=== PATIENT | female | born 1940 | race Caucasian/White ===

== ENCOUNTER 2024-02-06 19:35 | Inpatient (IN) | payer MEDICARE, OTHER ==
[~2024-02-06] VITALS: Ht 152.4 cm; Wt 81.6 kg
[2024-02-06 20:38] LABS: BASOPHILS # (AUTO) 0.1 K/uL (0.0-0.2); BASOPHILS % (AUTO) 0.6 % (0.0-2.0); EOSINOPHILS # (AUTO) 0.2 K/uL (0.0-0.7); HEMATOCRIT 35 % (33-45); LYMPHOCYTES # (AUTO) 1.5 K/uL (0.8-4.8); MEAN CORPUSCULAR HEMOGLOBIN 29 PG (26.0-33.0); MEAN CORPUSCULAR HGB CONC 31 g/dl (31.0-36.0); MEAN CORPUSCULAR VOLUME 93 fL (82-100); MONOCYTES # (AUTO) 0.9 K/uL (0.1-1.30); MONOCYTES % (AUTO) 8.4 % (2.0-12.0); NEUTROPHILS # (AUTO) 8.2 K/uL (1.8-8.9); PLATELET COUNT (AUTO) 159 K/uL (150-450); RED BLOOD CELL COUNT(AUTO) 3.79 MIL/uL (4.0-5.2); RED CELL DISTRIBUTION WIDTH 15.1 % (11.5-15.0)
[2024-02-06 20:51] LABS: INR 1.12 (0.91-1.10); PARTIAL THROMBOPLASTIN TIME 21.6 SEC (24.3-34.3); PROTHROMBIN TIME 11.4 SECS (9.2-11.1)
[2024-02-06 21:23] LABS: CALCIUM, SERUM 8.6 mg/dL (8.5-10.1); CARBON DIOXIDE 19 mmol/L (21-32); CHLORIDE 109 mmol/L (98-107); CREATININE 1.5 mg/dL (0.6-1.3); GLUCOSE 177 mg/dL (74-106); POTASSIUM 4.9 mmol/L (3.5-5.1); SODIUM SERUM 141 mmol/L (136-145); UREA NITROGEN, BLOOD 27 mg/dL (7-18)
[2024-02-06 21:28] LABS: LACTIC ACID 1.8 mmol/L (0.4-2.0)
[2024-02-06 21:31] LABS: ALANINE AMINOTRANSFERASE 15 U/L (12-78); ALBUMIN 3.3 g/dL (3.4-5.0); ALKALINE PHOSPHATASE 87 U/L (46-116); ASPARTATE AMINOTRANSFERASE 11 U/L (15-37); BILIRUBIN,DIRECT 0.1 mg/dL (0.0-0.2); BILIRUBIN,TOTAL 0.3 mg/dL (0.2-1.0); TOTAL PROTEIN, SERUM 6.6 g/dL (6.4-8.2)
[2024-02-06] MEDS ORDERED: MAG HYDROX/AL HYDROX/SIMETH 30 ML UDC PO PRN (22:00)
[2024-02-06] MEDS ORDERED: ONDANSETRON HCL/PF 4 MG/2 ML VIAL IVP PRN (22:00)
[2024-02-06] MEDS ORDERED: Z GUARD REMEDY 4 OZ OINT TP PRN (22:00)
[2024-02-06] MEDS ORDERED: MAGNESIUM HYDROXIDE 30 ML UDC PO PRN (22:00)
[2024-02-06 22:27] LABS: APPEARANCE,URINE CLEAR (CLEAR); BILIRUBIN,URINE NEGATIVE (NEGATIVE); BLOOD, URINE TRACE-INTA Ery/uL (NEGATIVE); COLOR,URINE YELLOW (YELLOW); KETONES,URINE NEGATIVE (NEGATIVE); LEUKOCYTE ESTERASE ,URINE NEGATIVE (NEGATIVE); NITRITE, URINE NEGATIVE (NEGATIVE); PROTEIN,URINE TRACE mg/dl (NEGATIVE); UGLUCOSE 3+ mg/dL (NEGATIVE); UROBILINOGEN,URINE 0.2 EU/dL (0.2)
[2024-02-06 22:30] VITALS: BP 121/75; TEMP 98.2; O2SAT 97
[2024-02-06 22:39] LABS: ADD URINE CULTURE NO; BACTERIA,URINE Few /HPF (None Seen); MUCUS,URINE Few /LPF (None Seen); WBC,URINE NONE SEEN /HPF (0-3)
[2024-02-07] VITALS (7 sets, daily range): BP systolic 113–145; BP diastolic 61–95; TEMP 97.5–99.5; O2SAT 96–99
[2024-02-07] MEDS: IV NS 0.9% 1,000 ML IV PRN (00:12)
[2024-02-07] MEDS: ACETAMINOPHEN 325 MG TABLET PO PRN (02:15)
[2024-02-07 08:23] LABS: CALCIUM, SERUM 8.4 mg/dL (8.5-10.1); CARBON DIOXIDE 22 mmol/L (21-32); CHLORIDE 110 mmol/L (98-107); CREATININE 1.3 mg/dL (0.6-1.3); GLUCOSE 113 mg/dL (74-106); MAGNESIUM 2.2 mg/dL (1.8-2.4); PHOSPHORUS 4.5 mg/dL (2.5-4.9); POTASSIUM 5.2 mmol/L (3.5-5.1); SODIUM SERUM 140 mmol/L (136-145); UREA NITROGEN, BLOOD 24 mg/dL (7-18)
[2024-02-07 08:31] LABS: BASOPHILS # (AUTO) 0.1 K/uL (0.0-0.2); BASOPHILS % (AUTO) 0.5 % (0.0-2.0); EOSINOPHILS # (AUTO) 0.2 K/uL (0.0-0.7); EOSINOPHILS % (AUTO) 1.9 % (0.0-6.0); HEMATOCRIT 34 % (33-45); HEMOGLOBIN 10.2 g/dL (11.5-14.8); LYMPHOCYTES # (AUTO) 1.7 K/uL (0.8-4.8); LYMPHOCYTES % (AUTO) 14.8 % (20.0-44.0); MEAN CORPUSCULAR HEMOGLOBIN 28 PG (26.0-33.0); MEAN CORPUSCULAR HGB CONC 30 g/dl (31.0-36.0); MEAN CORPUSCULAR VOLUME 95 fL (82-100); MONOCYTES # (AUTO) 1.1 K/uL (0.1-1.30); MONOCYTES % (AUTO) 10.1 % (2.0-12.0); NEUTROPHILS # (AUTO) 8.2 K/uL (1.8-8.9); NEUTROPHILS % (AUTO) 72.7 % (43.0-81.0); PLATELET COUNT (AUTO) 140 K/uL (150-450); RED CELL DISTRIBUTION WIDTH 15.4 % (11.5-15.0); WHITE BLOOD COUNT (AUTO) 11.3 K/uL (4.3-11.0)
[2024-02-07] MEDS ORDERED: DICL100G26 TP (14:23)
[2024-02-07] MEDS ORDERED: HYDR453.3 TP (14:23)
[2024-02-07] MEDS ORDERED: IPRA3AMP23 IH (14:23)
[2024-02-07] MEDS ORDERED: ACET-2605 PO (14:23)
[2024-02-07] MEDS ORDERED: FLUT16SP BNOSTRILS (14:23)
[2024-02-07] MEDS ORDERED: CARV25TA2 PO (14:23)
[2024-02-07] MEDS ORDERED: SODI1TAB66 PO (14:23)
[2024-02-07] MEDS ORDERED: ROSU20TA2 PO (14:23)
[2024-02-07] MEDS ORDERED: MIEBO EACHEYE (14:23)
[2024-02-07] MEDS ORDERED: ALPR1TAB7 PO (14:23)
[2024-02-07] MEDS ORDERED: CLOP75TA15 PO (14:23)
[2024-02-07] MEDS ORDERED: KETO15CR2 TP (14:23)
[2024-02-07] MEDS ORDERED: SACU1TAB PO (14:23)
[2024-02-07] MEDS ORDERED: MONT10TA22 PO (14:23)
[2024-02-07] MEDS ORDERED: PANT40TA49 PO (14:23)
[2024-02-07] MEDS ORDERED: DAPA10TA PO (14:23)
[2024-02-07] MEDS ORDERED: SPIR25TA6 PO (14:23)
[2024-02-07] MEDS: CEFTRIAXONE 1 G in IV D5W 50 ML IV SCH (15:52)
[2024-02-07] MEDS ORDERED: IPRATROPIUM NEB FS 0.5 MG/2.5 ML AMPUL.NEB NEB PRN (16:00)
[2024-02-07] MEDS ORDERED: ALBUTEROL FS 2.5 MG/3 ML VIAL.NEB NEB PRN (16:00)
[2024-02-07] MEDS: DICLOFENAC TOPICAL 100 GM TUBE TP SCH (17:13)
[2024-02-07] MEDS: SODIUM CHLORIDE 1000 MG TABLET PO SCH (17:22)
[2024-02-07] MEDS: SACUBITRIL/VALSARTAN 24/26MG TABLET PO SCH (17:22)
[2024-02-07] MEDS: FLUTICASONE PROPIONATE 16 GM BOTTLE NS SCH (17:22)
[2024-02-07] MEDS: CARVEDILOL 6.25 MG TABLET PO SCH (17:23)
[2024-02-07] MEDS: ATORVASTATIN 40 MG TABLET PO SCH (22:00)
[2024-02-08 00:59] VITALS: BP 135/92; TEMP 98.4; O2SAT 91
[2024-02-08 04:52] VITALS: BP 103/74; TEMP 99.7; O2SAT 97
[2024-02-08 08:00] VITALS: BP 125/73; TEMP 98.6; O2SAT 98
[2024-02-08] MEDS: PANTOPRAZOLE 40 MG TABLET.DR PO SCH (09:03)
[2024-02-08] MEDS: MONTELUKAST SODIUM (10MG) 10 MG TABLET PO SCH (09:04)
[2024-02-08] MEDS: SPIRONOLACTONE 25 MG TABLET PO SCH (09:04)
[2024-02-08] MEDS: CLOPIDOGREL BISULFATE 75 MG TABLET PO SCH (09:04)
[2024-02-08] MEDS: DAPAGLIFLOZIN PROPANEDIOL 5 MG TABLET PO SCH (09:04)
[2024-02-08 10:15] LABS: BASOPHILS # (AUTO) 0.1 K/uL (0.0-0.2); BASOPHILS % (AUTO) 0.7 % (0.0-2.0); EOSINOPHILS # (AUTO) 0.2 K/uL (0.0-0.7); EOSINOPHILS % (AUTO) 1.6 % (0.0-6.0); HEMATOCRIT 30 % (33-45); HEMOGLOBIN 9.8 g/dL (11.5-14.8); LYMPHOCYTES # (AUTO) 1.5 K/uL (0.8-4.8); LYMPHOCYTES % (AUTO) 13.7 % (20.0-44.0); MEAN CORPUSCULAR HEMOGLOBIN 28 PG (26.0-33.0); MEAN CORPUSCULAR HGB CONC 32 g/dl (31.0-36.0); MEAN CORPUSCULAR VOLUME 87 fL (82-100); MONOCYTES # (AUTO) 0.8 K/uL (0.1-1.30); MONOCYTES % (AUTO) 7.1 % (2.0-12.0); NEUTROPHILS # (AUTO) 8.4 K/uL (1.8-8.9); NEUTROPHILS % (AUTO) 76.9 % (43.0-81.0); PLATELET COUNT (AUTO) 149 K/uL (150-450); RED BLOOD CELL COUNT(AUTO) 3.49 MIL/uL (4.0-5.2)
[2024-02-08 10:35] LABS: CALCIUM, SERUM 8.5 mg/dL (8.5-10.1); CARBON DIOXIDE 27 mmol/L (21-32); CHLORIDE 109 mmol/L (98-107); CREATININE 1.1 mg/dL (0.6-1.3); GLUCOSE 114 mg/dL (74-106); NT-PRO BNP 1786 pg/mL (0-125); POTASSIUM 5.4 mmol/L (3.5-5.1); SODIUM SERUM 140 mmol/L (136-145); UREA NITROGEN, BLOOD 17 mg/dL (7-18)
[2024-02-08 12:21] VITALS: BP 126/70; TEMP 100; O2SAT 99
[2024-02-08] MEDS: SODIUM POLYSTYRENE SULFONATE 15 G/60 ML BOTTLE PO ONE (12:36)
[2024-02-08 16:00] VITALS: BP 143/77; TEMP 98.6; O2SAT 98
[2024-02-08 20:00] VITALS: BP 122/73; TEMP 98.2; O2SAT 100
[2024-02-09] VITALS: BP 135/86; TEMP 97.9; O2SAT 98
[2024-02-09 04:00] VITALS: BP 137/85; TEMP 98.4; O2SAT 100
[2024-02-09 07:07] LABS: BASOPHILS # (AUTO) 0.1 K/uL (0.0-0.2); BASOPHILS % (AUTO) 0.6 % (0.0-2.0); EOSINOPHILS # (AUTO) 0.2 K/uL (0.0-0.7); EOSINOPHILS % (AUTO) 1.6 % (0.0-6.0); HEMATOCRIT 30 % (33-45); HEMOGLOBIN 9.6 g/dL (11.5-14.8); LYMPHOCYTES # (AUTO) 1.6 K/uL (0.8-4.8); LYMPHOCYTES % (AUTO) 13.7 % (20.0-44.0); MEAN CORPUSCULAR HEMOGLOBIN 28 PG (26.0-33.0); MEAN CORPUSCULAR HGB CONC 33 g/dl (31.0-36.0); MEAN CORPUSCULAR VOLUME 85 fL (82-100); MONOCYTES # (AUTO) 1.1 K/uL (0.1-1.30); MONOCYTES % (AUTO) 9.1 % (2.0-12.0); NEUTROPHILS # (AUTO) 8.7 K/uL (1.8-8.9); PLATELET COUNT (AUTO) 151 K/uL (150-450); RED BLOOD CELL COUNT(AUTO) 3.46 MIL/uL (4.0-5.2); RED CELL DISTRIBUTION WIDTH 13.6 % (11.5-15.0); WHITE BLOOD COUNT (AUTO) 11.6 K/uL (4.3-11.0)
[2024-02-09 07:08] LABS: CALCIUM, SERUM 8.5 mg/dL (8.5-10.1); CARBON DIOXIDE 27 mmol/L (21-32); CHLORIDE 110 mmol/L (98-107); CREATININE 1.1 mg/dL (0.6-1.3); GLUCOSE 123 mg/dL (74-106); POTASSIUM 4.8 mmol/L (3.5-5.1); SODIUM SERUM 146 mmol/L (136-145); UREA NITROGEN, BLOOD 15 mg/dL (7-18)
[2024-02-09 10:54] VITALS: BP 137/85
== END 2024-02-09 17:35 | DRG 682 ==
LOC: ER 19:37 → TELE 21:57 → MED 02-09 12:07
PROVIDERS: ADMIT Nurse Practitioner Acute Care; ATTEND Nurse Practitioner Family
DX: N17.0 Acute kidney failure with tubular necrosis (principal); G93.41 Metabolic encephalopathy; I69.351 Hemiplegia and hemiparesis following cerebral infarction affecting right dominant side; N39.0 Urinary tract infection, site not specified; E87.20 Acidosis, unspecified; E87.0 Hyperosmolality and hypernatremia; I50.32 Chronic diastolic (congestive) heart failure; E86.0 Dehydration; I11.0 Hypertensive heart disease with heart failure; E66.9 Obesity, unspecified; E78.5 Hyperlipidemia, unspecified; E87.5 Hyperkalemia; J45.909 Unspecified asthma, uncomplicated; Z88.0 Allergy status to penicillin; Z95.0 Presence of cardiac pacemaker; Z68.35 Body mass index [BMI] 35.0-35.9, adult; B96.89 Other specified bacterial agents as the cause of diseases classified elsewhere; R53.1 Weakness
CPT/HCPCS: 36415; 70450-TC; 71045-TC; 80048-TC; 80076-TC; 81001; 83605-TC; 83735-TC; 83880; 84100-TC; 84443-TC; 84484-TC; 85025-TC; 85730-TC; 87040-TC; 87086-TC; 92526; 92611-TC; 93307-TC; 97110-TC; 97112-TC; 97530-TC; A4223; G0378; J0696; J7030; J7060